=== PATIENT | female | born 1975 | race Caucasian/White ===

== ENCOUNTER 2017-09-30 05:08 | Day surgery (SDC) | payer OTHER ==
[2017-09-23 16:59] VITALS: BMI 21.2
[2017-09-30] MEDS ORDERED: ONDANSETRON 4 MG/2 ML VIAL IVPUSH PRN (14:11)
[2017-09-30] MEDS ORDERED: oxyCODONE HCL 5 MG TABLET PO PRN (14:11)
[2017-09-30] MEDS ORDERED: PROMETHAZINE HCL 25 MG/1 ML VIAL IVPUSH PRN (14:11)
[2017-09-30] MEDS ORDERED: MIDAZOLAM HCL 2 MG/2 ML SINGLE DOSE VIAL ONE (14:13)
[2017-09-30] MEDS ORDERED: PROPOFOL 20 ML ONE (14:14)
[2017-09-30] MEDS ORDERED: DEXAMETHASONE SOD PHOSPHATE 4 MG/1 ML VIAL ONE (14:14)
[2017-09-30] MEDS ORDERED: LIDOCAINE HCL/PF 2% SDV 5ML VIAL ONE (14:14)
[2017-09-30] MEDS ORDERED: LACTATED RINGERS SOLUTION 1,000 ML IV SCH (14:15)
--- NOTE | 2017-09-30 14:28 | HP ---
Past Medical History - Primary Care Physician PCP:: Kaushal Cody - Admission Chief Complaint: 41yo fe,wm with menometrorrhagia and uterine polyp on US admitted for hysteroscopy, polypectomy, D&C. 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: No: Alzheimer's, CVA, Dementia, Migraine, Multiple Sclerosis, Peripheral Neuropathy, Parkinson's, Seizure, Syncope, TIA, Vertigo, Other Cardiovascular: No: AFIB, Aneurysm, Aortic Insufficiency, Aortic Stenosis, CAD, CHF, Deep Vein Thrombosis, HTN, Hyperlipdemia, OR, Mitral Insufficiency, Mitral Stenosis, Murmur, Pulmonary Hypertension, Other Pulmonary: No: Asthma, Bronchitis, Cancer, COPD, O2 Dependent, Pneumonia, Previously Intubated, Pulmonary Embolus, Pulmonary Fibrosis, Sleep Apnea, Other Gastrointestinal: No: Ascites, Cancer, Constipation, Crohn's Disease, Diverticulitis, Diverticulosis, Esophageal Varices, Gastritis, GERD, GI Bleed, Hemorrhoids, Hiatal Hernia, Inflamatory Bowel Disease, Irritable Bowel Disease, Pancreatitis, Peptic Ulcer Disease, Ulcerative Colitis, Other Hepatobiliary: No: Cirrhosis, Cholelithiasis, Cholecystitis, Choledocholithiasis , Hepatitis A, Hepatitis B, Hepatitis C, Other Renal/: No: Renal Failure, Renal Inusuff, BPH, Cancer, Hematuria, Hemodialysis , Neurogenic Bladder, Renal Calculi, UTI, Other Reproductive: No: Ectopic , Endometriosis, Fibroids, PID, Polycystic Ovary Syndrome, Postmenopausal, Other ...Para: 2 Heme/Onc: No: Anemia, B12 Deficiency, Bleeding Disorder, Cancer, Current Chemotherapy, Current Radiation Therapy, Hemochromatosis, Hypercoaguable State, Myeloproliferative Synd, Sickle Cell Disease, Sickle Cell Trait, Thrombocytopenia, Other Infectious Disease: No: AIDS, C-Diff, Herpes Zoster, HIV, MRSA, STD's, Tuberculosis, VREF, Other Psych: No: Addictions, Anxiety, Bipolar, Depression, Panic, Psychosis, Schizophrenia, Other Musculoskeletal: No: Bursitis, Chronic low back pain, Hemiparesis, Hemiplegia, Osteoarthritis, Paraplegia, Other Rheumatology: No: Fibromyalgia, Gout, Lupus, Rheumatoid Arthritis, Sarcoidosis, Vasculitis, Other ENT: No: Allergic Rhinitis, Sinusitis, Other Endocrine: No: [place]'s Disease, [place]'s Disease, Diabetes Insipidus, Diabetes Mellitus, Hyperparathyroidism, Hyperthyroidism, Hypothyroidism, Osteopenia, SIADH, Other Dermatology: No: Basal Cell, Cellulitis, Eczema, Melanoma, Psoriasis, Squamous Cell, Other - Past Surgical History Past Surgical History: Yes: Tubal Ligation (Essure, breast bx) Hx Myomectomy: No Hx Transabdominal Cerclage: No - Smoking History Smoking history: Never smoked Have you smoked in the past 12 months: No Aproximately how many cigarettes per day: 0 - Alcohol/Substance Use Hx Alcohol Use: No - Social History Usual Living Arrangement: Yes: With Spouse ADL: Independent History of Recent Travel: No Home Medications - Allergies Allergies/Adverse Reactions: Allergies Allergy/AdvReac Type Severity Reaction Status Date / Time No Known Allergies Allergy Verified 09/30/17 12:22 - Home Medications Home Medications: Ambulatory Orders RX: No Home Medications 0 dose .ROUTE UTDICT 12/16/12 Review of Systems - Review of Systems Constitutional: reports: No Symptoms Eyes: reports: No Symptoms HENT: reports: No Symptoms Neck: reports: No Symptoms Cardiovascular: reports: No Symptoms Respiratory: reports: No Symptoms Gastrointestinal: reports: No Symptoms Genitourinary: reports: No Symptoms Breasts: reports: No Symptoms Reported Musculoskeletal: reports: No Symptoms Integumentary: reports: No Symptoms Neurological: reports: No Symptoms Endocrine: reports: No Symptoms Hematology/Lymphatic: reports: No Symptoms Psychiatric: reports: No Symptoms Pain Intensity: 0 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 Vital Signs: Vital Signs Temperature 98.0 F 09/30/17 12:52 Pulse Rate 72 09/30/17 12:52 Respiratory Rate 16 09/30/17 12:52 Blood Pressure 95/63 09/30/17 12:52 O2 Sat by Pulse Oximetry (%) Constitutional: Yes: Well Nourished, No Distress, Calm Eyes: Yes: WNL, Conjunctiva Clear HENT: Yes: WNL, Atraumatic, Normocephalic Neck: Yes: WNL, Supple, Trachea Midline Cardiovascular: Yes: WNL, Regular Rate and Rhythm Respiratory: Yes: WNL, Regular, CTA Bilaterally Gastrointestinal: Yes: WNL, Normal Bowel Sounds, Soft ...Rectal Exam: Yes: Deferred Renal/: Yes: WNL Pelvis: Yes: WNL External Genitalia: Yes: Normal Internal Exam Deferred: No Vaginal Exam: Yes: Normal Cervix: Yes: Normal Uterus: Yes: Enlarged, Firm, Lumpy Adnexa: Normal: Left, Right Musculoskeletal: Yes: WNL Extremities: Yes: WNL Edema: No Integumentary: Yes: WNL Neurological: Yes: WNL, Alert, Oriented ...Motor Strength: WNL Psychiatric: Yes: WNL, Alert, Oriented Imaging - Results Ultrasound: Report Reviewed Assessment/Plan 41yo P2 with menometrorrhagia and suspected uterine polyps, and uterine fibroids , admitted for hysteroscopy, polypectomy, D&C. We had discussed the risks, benefits, alternatives of surgery at length including but not limited to infection, bleeding, scarring, perforation, amenorrhea, infertility, hysterectomy, etc. We also discussed the specific risks of endometrial/uterine mass excision. The pt verbalized understanding and requested to proceed with surgery. I emphasized that all surgeries have risks and no guarantees can be provided
[2017-09-30] MEDS ORDERED: ONDANSETRON 4 MG/2 ML VIAL ONE (15:27)
--- NOTE | 2017-09-30 15:43 | OP ---
Operative Note - Note: Operative Date: 09/30/17 Pre-Operative Diagnosis: Menometrorrhagia, endometrial polyps, uterine fibroids Operation: Hysteroscopy, myomectomy, D&C Findings: 1. EUA= bulky uterus with several myomas 2. Hysteroscopy= anterior subserosal myoma 1 x 2cm, fundal subserosal myoma 1 x 1cm Post-Operative Diagnosis: Other (Menometrorrhagia, subserosal myomas) Surgeon: Kaushal Cody Anesthesiologist/CHAIN LINK FENCE INSTALLER: Brittni López MD Anesthesia: General Specimens Removed: Uterine myomas, endometrial curettings Estimated Blood Loss (mls): 50 Blood Volume Replaced (mls): 0 Fluid Volume Replaced (mls): 1,000 Operative Report Dictated: Yes
--- NOTE | 2017-09-30 16:09 | DS ---
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 Vital Signs: Vital Signs Temperature 98.0 F 09/30/17 12:52 Pulse Rate 72 09/30/17 12:52 Respiratory Rate 16 09/30/17 12:52 Blood Pressure 95/63 09/30/17 12:52 O2 Sat by Pulse Oximetry (%) Constitutional: Yes: Well Nourished, No Distress, Calm Eyes: Yes: WNL, Conjunctiva Clear HENT: Yes: WNL, Atraumatic, Normocephalic Neck: Yes: WNL, Supple, Trachea Midline Cardiovascular: Yes: WNL, Regular Rate and Rhythm Respiratory: Yes: WNL, Regular, CTA Bilaterally Gastrointestinal: Yes: WNL, Normal Bowel Sounds, Soft ...Rectal Exam: Yes: Deferred Renal/: Yes: WNL External Genitalia: Yes: Normal Internal Exam Deferred: Yes Vaginal Exam: Yes: Bleeding (light) Musculoskeletal: Yes: WNL Extremities: Yes: WNL Edema: No Integumentary: Yes: WNL Neurological: Yes: WNL, Alert, Oriented ...Motor Strength: WNL Psychiatric: Yes: WNL, Alert, Oriented Discharge Summary Reason For Visit: METRORRHAGIA/ENDOMETRIAL POLYP uterine fibroids Procedures: Principal: Hysteroscopic myomectomy Hospital Course: Normal recovery Condition: Good - Instructions Diet, Activity, Other Instructions: Dr. Kaushal Cody Medical Aides Teacher discharge instructions Physical activity Resume your normal everyday activity as tolerated no heavy lifting or exercise until seen by your surgeon. You may walk unlimited tim of and climb stairs. You may resume driving the car when you feel safe and comfortable behind the wheel. No sexual activity as instructed by Dr. Cody. Wound care If you have a bandage, leave it on, and keep dry for 48-72 hours. After that time discard the outer bandage. If they are tapes on the skin under the out of bandage leave them in place. They will peel off in the next 7 to 10 days. Do Not Peel them off. You may shower the day after surgery. If there are tapes present on the skin, you may shower over them. Diet There are no dietary restrictions. Eat healthy, high-fiber foods. Drink 6 to 8 glasses of liquid each day. This will assist in keeping your bowels are regular. Pain management You may take Tylenol or acetaminophen or Ibuprofen (for example, Motrin, Advil etc.) from my pain prescription medication is ordered should be taken as prescribed for moderate to severe pain. Call Dr. Cody for any of the following: Severe pain not relieved by medication Fever of 101 or higher Excessive bleeding or drainage on dressing Inability to urinate Call the office at [phone] for an appointment in 2-3 weeks. Disposition: HOME - Home Medications Comprehensive Discharge Medication List: Ambulatory Orders No Home Medications 0 dose .ROUTE UTDICT 12/16/12
[2017-09-30 16:41] VITALS: PULSE 63
[2017-09-30 18:45] VITALS: BP 109/60
[2017-09-30 20:23] VITALS: TEMP 98.2
--- NOTE | 2017-10-01 07:54 | OP ---
DATE OF OPERATION: 09/30/2017 PREOPERATIVE DIAGNOSES: Menometrorrhagia, endometrial polyps, uterine fibroids. POSTOPERATIVE DIAGNOSES: Menometrorrhagia, uterine fibroids including submucosal fibroids. PROCEDURE: Hysteroscopy, myomectomy, dilatation and curettage. SURGEON: Kaushal Cody MD ACCOUNTS OFFICER: None. ANESTHESIOLOGIST: Brittni López MD ANESTHESIA: General. COMPLICATIONS: None. ESTIMATED BLOOD LOSS: 50 mL INTRAVENOUS FLUIDS: 1000 mL PATHOLOGY: Uterine myomas and endometrial curettings. FINDINGS: Examination under anesthesia revealed a bulky, enlarged uterus with several myomas palpated. Hysteroscopy revealed an enlarged uterine cavity with anterior submucosal myoma measuring 1 x 2 cm as well as a fundal submucosal myoma measuring 1 x 1 cm. There were no other endometrial or uterine cavity lesions. DESCRIPTION OF PROCEDURE: The patient was met preoperatively. Risks and benefits of surgery were discussed. All questions were answered. The patient requested to proceed with surgery. The consent was reviewed and signed. The patient was then brought to the OR with the IV running. She was placed on the surgical table in the supine position. General endotracheal anesthesia was achieved without difficulty. The patient was then placed in a dorsal lithotomy position using adjustable Jose stirrups. She was examined under anesthesia with the findings as described above. A timeout procedure was conducted as per standard protocol. The patient was then prepped and draped in the usual sterile fashion. A weighted speculum was introduced inside the vagina with good visualization of the cervix. The cervix was grasped with a single-tooth tenaculum. The cervical os was dilated to accommodate a size 21 Garcia dilator. A hysteroscope was gently introduced inside the uterine cavity. The uterine cavity appeared to be enlarged. There was an anterior submucosal myoma measuring approximately 1 x 2 cm in size. There was a second submucosal myoma in the fundal region measuring approximately 1 x 1 cm in size. There were no other uterine cavity lesions. The TruClear polyp resection device was then used hysteroscopically under direct visualization to attempt and excise both of the fibroids. However, once it was discovered that the 2 masses were, in fact, fibroids and not polyps, the attempt to excise them using a TruClear device was abandoned because the device did not work and could not resect the fibroids. At that point, the patient's cervix was dilated to accommodate a size 29 Garcia dilator. A polyp-grasping forcep was then used to grasp and remove the fundal myoma. Then again, a polyp-grasping forcep was used to grasp and remove the anterior uterine submucosal myoma. Both fibroids were sent to Pathology. Once this was completed, a sharp uterine curettage was performed, and the endometrial curettings were also sent to Pathology. A hysteroscope was then once again introduced inside the uterine cavity. The uterine cavity appeared to be normal. There was good hemostasis observed. The hysteroscope was removed from the patient. All of the instruments were removed. A small area of bleeding was noted from the cervix at the site of the tenaculum. A suture ligature was used to achieve good hemostasis. Sponge, lap, and needle counts were correct. Once again, good hemostasis was confirmed. The patient was returned to supine position. The patient was then transferred to recovery room awake and in stable condition. Marya [id number]
--- NOTE | 2017-10-05 14:29 | PATH ---
Surgical Pathology Report Patient Name: [facility]. Rec. #: [id number] /Age/Gender: 1975 (Age: 41) / F Account: [id number] Location: [facility] SURGICAL Taken: 09/30/2017 Received: 10/02/2017 Reported: 10/05/2017 Physicians: Kaushal Cody M.D. Specimen(s) Received A: ENDOMETRIAL CURETTINGS B: UTERINE FIBROIDS Clinical History Menorrhagia, fibroid uterus Final Diagnosis A. ENDOMETRIAL CURETTINGS, DILATION AND CURETTAGE: FRAGMENTS OF SECRETORY ENDOMETRIUM AND SUPERFICIAL MYOMETRIUM. B. FIBROIDS, POLYPECTOMY: LEIOMYOMA(TA). Electronically Signed Jeannette Mccurdy M.D. Gross Description A. Received in formalin labeled "endometrial curettings," is a 4.5 x 4.0 x 0.4 cm aggregate of miranda-brown soft tissue fragments admixed with blood clot. The formalin is filtered and the specimen is entirely submitted in 3 cassettes. B. Received in formalin labeled "fibroids," is a 1 g aggregate of 2 miranda, irregular, firm to rubbery nodules measuring 0.7 and 1.5 cm in greatest dimension, consistent with fibroids. Sectioning reveals homogeneous miranda, firm parenchyma with whorled architecture. No areas of hemorrhage or necrosis are identified. The specimens are sectioned and entirely submitted in one cassette. 10/02/2017 saudi10/02/2017
== END 2017-09-30 18:46 | disposition home or self-care (01) ==
LOC: JASU-SURG 05:08
PROVIDERS: ATTEND Obstetrics & Gynecology
PROC: 0UJD8ZZ Inspection of Uterus and Cervix, Via Natural or Artificial Opening Endoscopic (ICD-10-PCS; 2017-09-30)
PROC: 0UB98ZZ Excision of Uterus, Via Natural or Artificial Opening Endoscopic (ICD-10-PCS; principal; 2017-09-30 14:30)
PROC: 0UDB7ZX Extraction of Endometrium, Via Natural or Artificial Opening, Diagnostic (ICD-10-PCS; 2017-09-30 14:30)
DX: N92.1 Excessive and frequent menstruation with irregular cycle (principal); D25.0 Submucous leiomyoma of uterus
CPT/HCPCS: 84703; 88305-TC

== ENCOUNTER 2020-01-23 16:09 | Inpatient (IN) | payer BC ==
[2020-02-02 17:40] VITALS: BMI 21.6
[2020-02-06] MEDS ORDERED: ROPIVACAINE HCL 0.5% 30ML VIAL ONE (08:10)
[2020-02-06] MEDS ORDERED: MIDAZOLAM HCL 2 MG/2 ML SINGLE DOSE VIAL ONE ×2 (08:11)
[2020-02-06] MEDS ORDERED: PROPOFOL 20 ML ONE (08:14)
[2020-02-06] MEDS ORDERED: ROCURONIUM BROMIDE 50 MG/5 ML SYRINGE ONE (08:14)
[2020-02-06] MEDS ORDERED: CEFAZOLIN 2 GM in DEXTROSE 5%-WATER 100 ML IVPB ONE (08:23)
[2020-02-06] MEDS ORDERED: LIDOCAINE HCL/PF 2% SDV 5ML VIAL ONE (08:41)
[2020-02-06] MEDS ORDERED: DEXAMETHASONE SOD PHOSPHATE 4 MG/1 ML VIAL ONE (08:52)
[2020-02-06] MEDS ORDERED: SODIUM CHLORIDE 0.9% P/F 10 ML VIAL IJ ONE (08:52)
[2020-02-06] MEDS ORDERED: ONDANSETRON 4 MG/2 ML VIAL ONE (08:52)
[2020-02-06] MEDS ORDERED: ceFAZolin SODIUM 1 GM VIAL IVPB ONE (08:54)
[2020-02-06] MEDS ORDERED: ENOXAPARIN NA (PORCINE) 40 MG/0.4 ML DISP.SYRIN SQ SCH (10:00)
[2020-02-06] MEDS ORDERED: GLYCOPYRROLATE 0.2 MG/1 ML VIAL ONE (10:05)
[2020-02-06] MEDS ORDERED: NEOSTIGMINE METHYLSULFATE 0.5 MG/1 ML - 10 ML MDV ONE (10:06)
[2020-02-06] MEDS ORDERED: BENZOIN/ALOE VERA/STORAX/TOLU 58 ML BOTTLE ONE (10:22)
[2020-02-06] MEDS ORDERED: ONDANSETRON 4 MG/2 ML VIAL IVPUSH PRN ×2 (10:36)
[2020-02-06] MEDS ORDERED: PROMETHAZINE HCL 25 MG/1 ML VIAL IVPUSH PRN (10:36)
[2020-02-06] MEDS ORDERED: DEXAMETHASONE SOD PHOSPHATE 4 MG/1 ML VIAL IVPUSH PRN (10:36)
[2020-02-06] MEDS ORDERED: PROMETHAZINE HCL 25 MG/1 ML VIAL IVPB PRN (10:36)
[2020-02-06] MEDS ORDERED: LACTATED RINGERS SOLUTION 1,000 ML IV SCH (10:45)
--- NOTE | 2020-02-06 10:45 | OP ---
Operative Note - Note: Operative Date: 02/06/20 Pre-Operative Diagnosis: Pelvic pain. Fibroid uterus. Left adnexal mass Operation: DANUTA, LSO, right salpingectomy. Findings: Bulky enlarged uterus with multiple myomas, enlarged left ovary with cystic mass. Normal right ovary, normal Fallopian tubes bilaterally. Post-Operative Diagnosis: Same as Pre-op Surgeon: Kaushal Cody Oscillograph Technician: Debi Mckeon Anesthesiologist/INDEPENDENT JEWELER: Edinson Levine Anesthesia: General Specimens Removed: Uterus with cervix, bilateral Fallopian tubes, left ovary. Estimated Blood Loss (mls): 100 Drains & Tubes with Location: Acosta Cath Drains, Volume Out (mls): 75 Blood Volume Replaced (mls): 0 Fluid Volume Replaced (mls): 1,200 Operative Report Dictated: Yes
[2020-02-06] MEDS ORDERED: IBUPROFEN 600 MG TABLET (FP) PO PRN (10:50)
[2020-02-06] MEDS ORDERED: DOCUSATE SODIUM 100 MG CAPSULE (FP) PO PRN (10:51)
[2020-02-06] MEDS ORDERED: ACETAMINOPHEN 1000 MG/100 ML VIAL (NON FORMULARY) IVPB PRN (10:51)
[2020-02-06] MEDS: HYDROmorphone *PCA* 10MG/50ML DISP.SYRIN PCA SCH ×2 (11:00→19:17)
[2020-02-06] MEDS ORDERED: ACETAMINOPHEN 1000 MG/100 ML VIAL (NON FORMULARY) IVPB ONE (11:37)
[2020-02-06] MEDS: CEFAZOLIN 2 GM/D5W 2 GM/50 ML ML IVPB SCH (17:35)
[2020-02-06] MEDS ORDERED: CEFAZOLIN 2 GM in DEXTROSE 5%-WATER - 100 ML IVPB SCH (18:00)
[2020-02-07] MEDS: CEFAZOLIN 2 GM/D5W 2 GM/50 ML ML IVPB SCH ×2 (01:50→09:29)
--- NOTE | 2020-02-07 07:59 | OP ---
DATE OF OPERATION: 02/06/2020 PREOPERATIVE DIAGNOSES: Pelvic pain, fibroid uterus, left adnexal mass. POSTOPERATIVE DIAGNOSES: Pelvic pain, fibroid uterus, left adnexal mass. PROCEDURE: Total abdominal hysterectomy, left oophorectomy, bilateral salpingectomy. SURGEON: Vandana Cody MD MOLD CLEANER: Debi Mckeon MD ANESTHESIOLOGIST: Edinson Levine MD ANESTHESIA: General. COMPLICATIONS: None. ESTIMATED BLOOD LOSS: 100 mL. URINE OUTPUT: Clear urine, 75 mL, at end of the procedure. INTRAVENOUS FLUIDS: Crystalloids, 1200 mL. PATHOLOGY: Uterus and cervix, left ovary with ovarian mass/cyst, bilateral fallopian tubes and left paratubal cyst. FINDINGS: Examination under anesthesia revealed a bulky enlarged uterus consistent with approximately 12 weeks of gestation. During laparotomy a bulky fibroid uterus was noted. Multiple fibroids were observed. The left ovary appeared enlarged and contained a cystic mass. Both fallopian tubes were normal. The right ovary was normal. PROCEDURE: The patient was met preoperatively. Risks, benefits and alternatives of surgery were discussed in detail. All questions were answered. The consent form was reviewed. The patient verbalized her understanding. The consent form was signed and the patient requested to proceed with the surgery. Surgical options were also discussed with the patient and she expressed her desire for a total abdominal hysterectomy with removing of uterus and cervix with removing of both fallopian tubes and removing of the left ovary. The patient was then brought to the OR with IV running. She was placed on the surgical table in supine position. The general anesthesia was achieved without difficulty. A Acosta catheter was then inserted using sterile technique and left to drain to gravity. The patient was prepped and draped in the usual sterile fashion. The timeout was conducted as per standard protocol. The surgeons then proceeded with the operation. A Pfannenstiel skin incision was made with a knife approximately 2 cm above the pubic symphysis. The incision was taken down to the level of fascia. The fascia was incised in the midline. The incision was extended bilaterally using Mcelroy scissors. The fascia was then dissected away from the rectus muscles superiorly and inferiorly. The rectus muscles were in the midline. The peritoneum was identified, picked up with 2 Essence clamps and entered sharply. The peritoneal incision was extended superiorly and inferiorly. The uterus was palpated and brought out of the incision. The left round ligament was identified. The left round ligament was clamped with a Essence clamp, suture ligated and transected with good hemostasis. The right round ligament was also identified, picked up with 2 Essence clamps. It was suture ligated and transected with good hemostasis. The anterior leaf of the broad ligament was then incised and the incision was carried down medially towards the bladder reflection. The bladder reflection was then created and the bladder was dissected away from the lower uterine segment and cervicovaginal fascia. The bladder was reflected downwards. The posterior leaf of the broad ligament was then incised bilaterally. The left infundibulopelvic ligament was clamped, transected and suture ligated with good hemostasis. The right uteroovarian ligament was clamped, transected and suture ligated with good hemostasis. The posterior broad ligament was then incised medially towards the bilateral uterosacral ligament. At that point both uterine arteries and veins were skeletonized bilaterally. The uterine arteries and veins were then clamped using Hebert clamps, transected and suture ligated with good hemostasis. Several bites were then taken along the cervix to transect the cardinal ligament. The cardinal ligaments were suture ligated with good hemostasis. At that point the vaginal tissue was incised and the cervix and uterus were amputated. The vaginal cuff was then suture ligated with good hemostasis using 0 Vicryl sutures. The vaginal cuff was also attached to the remaining uterosacral ligament. Good hemostasis was confirmed. At that point the operative site was reperitonealized using a 2-0 Vicryl suture. Good hemostasis was noted. All of the pedicles and operative site were surveyed and good hemostasis was confirmed. The operative site was irrigated using copious amounts of normal saline. Once the saline was aspirated good hemostasis was confirmed. All of the instruments were removed from the patient. Sponge, lap, needle and instrument counts were correct. The specimen was sent to Pathology. The parietal peritoneum was closed using a 2-0 Vicryl suture. The rectus muscles were approximated in the midline using several interrupted 2-0 Vicryl sutures. The fascia was closed using a 0 Vicryl suture in 2 segments using a running stitch. The skin was closed using a 3-0 Vicryl suture with a subcutaneous stitch. Good hemostasis was noted. Once again sponge, lap, instrument counts were correct. The patient was then transferred to recovery room in stable condition and awake. VANDANA CODY M.D. RANDY/[id number]
[2020-02-07] MEDS ORDERED: PCA PUMP KEY 1 EACH EACH ONE (08:48)
[2020-02-07 09:09] LABS: BASO % 0.1 % (0-2.0); EOS % 0.1 % (0-4.5); HEMATOCRIT 36.4 % (32.4-45.2); HEMOGLOBIN 12.1 GM/dL (10.7-15.3); MCH 30.5 pg (25.7-33.7); MCHC 33.4 g/dl (32.0-36.0); MEAN CELL VOLUME 91.4 fl (80-96); MEAN PLT VOLUME 8.3 fl (7.5-11.1); NEUT % 71.8 % (42.8-82.8); PLATELET COUNT 182 K/MM3 (134-434); RBC 3.98 M/mm3 (3.60-5.2); RDW 13.9 % (11.6-15.6); WHITE BLOOD COUNT 9.2 K/mm3 (4.0-10.0)
[2020-02-07] MEDS: ENOXAPARIN NA (PORCINE) 40 MG/0.4 ML DISP.SYRIN SQ SCH (09:29)
[2020-02-07] MEDS: oxyCODONE HCL 5 MG TABLET PO PRN ×4 (09:30→23:42)
[2020-02-07] MEDS: ACETAMINOPHEN 325 MG TABLET (FP) PO PRN ×4 (09:30→23:42)
[2020-02-07 09:34] LABS: ALBUMIN 3.1 g/dl (3.4-5.0); BILIRUBIN,TOTAL 0.5 mg/dL (0.2-1); BLOOD UREA NITROGEN 6.8 mg/dL (7-18); CALCIUM 8.1 mg/dL (8.5-10.1); CREATININE 0.5 mg/dL (0.55-1.3); POTASSIUM 3.8 mmol/L (3.5-5.1); TOT PROT 5.7 g/dl (6.4-8.2)
[2020-02-07] MEDS: HYDROmorphone *PCA* 10MG/50ML DISP.SYRIN PCA SCH (12:22)
--- NOTE | 2020-02-07 12:42 | PN ---
Progress Note (short form) - Note Progress Note: Anesthesia postop note POD#1 S/P abdominal hysterectomy under GA, TAP block and DOG BEAUTICIAN. VSS ambulating. Tolerating po, C/o nausea last night. Stopped DOG BEAUTICIAN. On Po meds. C/O pain when ambulating. /.,is sitting comfortably though. continue po meds as per primary team. No apparent post anesthesia complications.
--- NOTE | 2020-02-07 20:54 | PN ---
Progress Note (SOAP) - Subjective Chief Complaint: No complaints, pain is controlled. No flatus yet, no nausea or vomiting. Ambulating and Urinating well. History of Present Illness: POD# 1, s/p DANUTA, right salpingoophorectomy, left salpingectomy - Current Medications Current Medications: Active Medications Acetaminophen (Tylenol -) 650 mg PO Q6H PRN PRN Reason: FEVER Last Admin: 02/07/20 18:42 Dose: 650 mg Documented by: Acetaminophen (Ofirmev Injection -) 1,000 mg IVPB Q6H PRN PRN Reason: PAIN Stop: 02/07/20 10:51 Dexamethasone Sodium Phosphate (Decadron Injection -) 4 mg IVPUSH ONCE PRN PRN Reason: NAUSEA AND/OR VOMITING Diphenhydramine HCl (Benadryl Injection -) 12.5 mg IVPUSH ONCE PRN PRN Reason: FOR ITCHING Docusate Sodium (Colace -) 100 mg PO BID PRN PRN Reason: CONSTIPATION Enoxaparin Sodium (Lovenox -) 40 mg SQ DAILY [facility] Last Admin: 02/07/20 09:29 Dose: 40 mg Documented by: Fentanyl (Sublimaze Injection -) 50 mcg IVPUSH [id number] PRN PRN Reason: PAIN-PACU ORDER X 4 DOSES ONLY Last Admin: 02/06/20 10:45 Dose: 50 mcg Documented by: Lactated Ringer's (Lactated Ringers Solution) 1,000 mls @ 125 mls/hr IV ASDIR [facility] Last Admin: 02/06/20 17:38 Dose: 125 mls/hr Documented by: Ibuprofen (Motrin -) 600 mg PO Q6H PRN PRN Reason: PAIN Ondansetron HCl (Zofran Injection) 4 mg IVPUSH Q6H PRN PRN Reason: NAUSEA AND/OR VOMITING Ondansetron HCl (Zofran Injection) 4 mg IVPUSH Q4H PRN PRN Reason: NAUSEA AND/OR VOMITING Last Admin: 02/07/20 03:26 Dose: 4 mg Documented by: Oxycodone HCl (Roxicodone -) 5 mg PO Q4H PRN PRN Reason: PAIN LEVEL 4 - 6 Last Admin: 02/07/20 18:42 Dose: 5 mg Documented by: Promethazine HCl (Phenergan Injection -) 12.5 mg IVPB Q6H PRN PRN Reason: NAUSEA AND/OR VOMITING - Objective Vital Signs: Vital Signs Temperature 98.6 F 02/07/20 14:00 Pulse Rate 62 02/07/20 14:00 Respiratory Rate 20 02/07/20 14:00 Blood Pressure 110/62 02/07/20 14:00 O2 Sat by Pulse Oximetry (%) 100 02/06/20 21:00 Constitutional: Yes: Well Nourished, No Distress, Calm Eyes: Yes: WNL, Conjunctiva Clear, EOM Intact HENT: Yes: WNL, Atraumatic, Normocephalic Neck: Yes: WNL, Supple, Trachea Midline Cardiovascular: Yes: WNL, Regular Rate and Rhythm Respiratory: Yes: WNL, Regular, CTA Bilaterally Gastrointestinal: Yes: WNL, Normal Bowel Sounds, Soft ...Rectal Exam: Yes: Deferred Genitourinary: Yes: WNL Musculoskeletal: Yes: WNL Extremities: Yes: WNL Peripheral Pulses WNL: Yes Edema: No Integumentary: Yes: WNL Wound/Incision: Yes: Clean/Dry, Well Approximated, Sutures Intact, Steri Strips, Open to air Neurological: Yes: WNL, Alert, Oriented ...Motor Strength: Yes: WNL Psychiatric: Yes: WNL, Alert, Oriented Labs Lab Results: CBCD WBC 9.2 K/mm3 (4.0-10.0) 02/07/20 08:25 RBC 3.98 M/mm3 (3.60-5.2) 02/07/20 08:25 Hgb 12.1 GM/dL (10.7-15.3) 02/07/20 08:25 Hct 36.4 % (32.4-45.2) 02/07/20 08:25 MCV 91.4 fl (80-96) 02/07/20 08:25 MCHC 33.4 g/dl (32.0-36.0) 02/07/20 08:25 RDW 13.9 % (11.6-15.6) 02/07/20 08:25 Plt Count 182 K/MM3 (134-434) 02/07/20 08:25 MPV 8.3 fl (7.5-11.1) 02/07/20 08:25 CMP Sodium 140 mmol/L (136-145) 02/07/20 08:25 Potassium 3.8 mmol/L (3.5-5.1) 02/07/20 08:25 Chloride 106 mmol/L (98-107) 02/07/20 08:25 Carbon Dioxide 28 mmol/L (21-32) 02/07/20 08:25 Anion Gap 6 MMOL/L (8-16) L 02/07/20 08:25 BUN 6.8 mg/dL (7-18) L 02/07/20 08:25 Creatinine 0.5 mg/dL (0.55-1.3) L 02/07/20 08:25 Random Glucose 99 mg/dL (74-106) 02/07/20 08:25 Calcium 8.1 mg/dL (8.5-10.1) L 02/07/20 08:25 Total Bilirubin 0.5 mg/dL (0.2-1) 02/07/20 08:25 AST 12 U/L (15-37) L 02/07/20 08:25 ALT 16 U/L (13-61) 02/07/20 08:25 Alkaline Phosphatase 78 U/L (45-117) 02/07/20 08:25 Total Protein 5.7 g/dl (6.4-8.2) L 02/07/20 08:25 Albumin 3.1 g/dl (3.4-5.0) L 02/07/20 08:25 Assessment/Plan POD #1 doing well, stable and afebrile. Ambulation encouraged. If the patient has flatus and continues to do well, plan to d/c home tomorrow.
--- NOTE | 2020-02-07 21:02 | DS ---
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 Vital Signs: Vital Signs Temperature 98.6 F 02/07/20 14:00 Pulse Rate 62 02/07/20 14:00 Respiratory Rate 20 02/07/20 14:00 Blood Pressure 110/62 02/07/20 14:00 O2 Sat by Pulse Oximetry (%) 100 02/06/20 21:00 Constitutional: Yes: Well Nourished, No Distress, Calm Eyes: Yes: WNL, Conjunctiva Clear, EOM Intact HENT: Yes: WNL, Atraumatic, Normocephalic Neck: Yes: WNL, Supple, Trachea Midline Cardiovascular: Yes: WNL, Regular Rate and Rhythm Respiratory: Yes: WNL, Regular, CTA Bilaterally Gastrointestinal: Yes: WNL, Normal Bowel Sounds, Soft ...Rectal Exam: Yes: Deferred Renal/: Yes: WNL Internal Exam Deferred: Yes Breast(s): Yes: WNL Musculoskeletal: Yes: WNL Extremities: Yes: WNL Integumentary: Yes: WNL Wound/Incision: Yes: Clean/Dry, Well Approximated, Sutures Intact, Steri Strips, Open to air Neurological: Yes: WNL, Alert, Oriented ...Motor Strength: WNL Psychiatric: Yes: WNL, Alert, Oriented Labs: CBC, BMP 02/07/20 08:25 02/07/20 08:25 Discharge Summary Problems reviewed: Yes Reason For Visit: FIBROID UTERUS/ABD OR PELVIC SWELLING & PAIN Postop Procedures: Principal: Total abdominal hysterectomy, right salpingoophorectomy, left salpingectomy Hospital Course: Normal postop Plan of Treatment: Ambulation, pain management Goals: return to full range of normal activities Condition: Good - Instructions Diet, Activity, Other Instructions: Physical activity Resume your normal everyday activity as tolerated no heavy lifting or exercise until seen by your surgeon. You may walk unlimited tim of and climb stairs. You may resume driving the car when you feel safe and comfortable behind the wheel. No sexual activity as instructed. Wound care If you have a bandage, leave it on, and keep dry for 48-72 hours. After that time discard the outer bandage. If they are tapes on the skin under the out of bandage leave them in place. They will peel off in the next 7 to 10 days. Do Not Peel them off. You may shower the day after surgery. If there are tapes present on the skin, you may shower over them. Diet There are no dietary restrictions. Eat healthy, high-fiber foods. Drink 6 to 8 glasses of liquid each day. This will assist in keeping your bowels are regular. Pain management You may take Tylenol or acetaminophen or Ibuprofen (for example, Motrin, Advil etc.) from my pain prescription medication is ordered should be taken as prescr ibed for moderate to severe pain. Call MD for any of the following: Severe pain not relieved by medication Fever of 101 or higher Excessive bleeding or drainage on dressing Inability to urinate Referrals: Kaushal Cody MD [Staff Physician] - 1 Week Disposition: HOME - Home Medications Comprehensive Discharge Medication List: Ambulatory Orders No Home Medications 0 dose .ROUTE UTDICT 12/16/12 Ibuprofen 600 mg PO Q6H PRN #30 tablet 02/07/20 Oxycodone HCl [Roxicodone] 5 mg PO Q4H PRN #20 tablet MDD 8 02/07/20 Prescription Drug Monitoring Program (I-STOP) results: I-STOP not reviewed
[2020-02-08] MEDS ORDERED: BISACODYL 10 MG SUPP.RECT PR PRN (09:08)
[2020-02-08 09:12] VITALS: BP 105/60; PULSE 86; TEMP 97.8
[2020-02-08] MEDS: ENOXAPARIN NA (PORCINE) 40 MG/0.4 ML DISP.SYRIN SQ SCH (09:19)
[2020-02-08] MEDS: oxyCODONE HCL 5 MG TABLET PO PRN (11:32)
[2020-02-08] MEDS: ACETAMINOPHEN 325 MG TABLET (FP) PO PRN (11:35)
--- NOTE | 2020-02-11 12:10 | PATH ---
Surgical Pathology Report Patient Name: SRI RICHARDSON [facility]. Rec. #: [id number] /Age/Gender: 1975 (Age: 44) / F Account: [id number] Location: 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 Specimen(s) Received A: LEFT PARATUBAL CYST B: UTERUS, CERVIX, WITH OR W/O TUBES AND OVARIES, (WITH FIBROIDS Clinical History Fibroid uterus/abdominal or pelvic swelling and pain Final Diagnosis A. LEFT PARATUBAL CYST, CYSTECTOMY: CONSISTENT WITH PARATUBAL CYST. B. UTERUS, CERVIX, BILATERAL TUBES AND LEFT OVARY, HYSTERECTOMY: LEIOMYOMATA, WITH FOCAL HEMORRHAGE, HYALINIZATION AND CALCIFICATIONS SEEN IN TWO LEIOMYOMAS. SECRETORY TYPE ENDOMETRIUM . CERVIX WITH ACUTE AND CHRONIC CERVICITIS, SQUAMOUS METAPLASIA. RIGHT FALLOPIAN TUBE WITH PARATUBAL CYSTS. LEFT FALLOPIAN TUBE WITH ENDOSALPINGIOSIS. LEFT OVARY WITH HEMORRHAGIC CORPUS LUTEUM, AND BENIGN SIMPLE CYST WITH NO DEFINITE EPITHELIAL LINING. Electronically Signed Batsheva Huitron M.D. Gross Description A. Received in formalin labeled "left paratubal cyst," is a 2.0 x 1.5 x 1.3 cm miranda, intact, translucent cystic structure. The outer surface is smooth. The lumen contains clear serous fluid. The inner lining is smooth. No excrescences are identified. Hooker Operator sections are submitted in one cassette. B. Received formalin labeled "uterus, cervix, bilateral tubes and left ovary," is a 440 g uterus with an attached cervix, bilateral attached fallopian tubes and an attached left ovary. The specimen measures 12 cm from superior to inferior, 9 cm from anterior to posterior and 8.5 cm from left to right. The serosa is miranda-brar with a focal bulging subserosal nodule. The attached cervix measures 3.8 cm in length and 3.5 cm in diameter. The ectocervix is miranda, smooth and glistening. The endocervix is unremarkable. The endometrial cavity measures 5 cm in length and 2 cm from cornu to cornu. The endometrium is red and averages 0.2 cm in thickness. The myometrium displays abundant intramural nodules, measuring up to 5.3 cm in greatest dimension. The cut surface of the subserosal nodule is necrotic. The cut surface of one of the smaller intramural nodules displays central hemorrhage. The remaining intramural nodules, as well as the largest intramural nodule, displays miranda, rubbery parenchyma with whorled architecture. No areas of hemorrhage or necrosis are identified. The remaining myometrium is miranda-pink and measures up to 6 cm in thickness. The right fimbriated fallopian tube measures 4.5 cm in length. The outer surface is brar purple with a 0.9 cm in greatest dimension paratubal cyst attached to the fimbria. The cut surface of the fallopian tube reveals an unremarkable lumen. The left fimbriated fallopian tube measures 4 cm in length. The outer surface is miranda-brar with a 0.8 cm in greatest dimension paratubal cyst attached to the fimbria. The cut surface of the fallopian tube reveals an unremarkable lumen. The left ovary measures 4.5 x 3.8 x 3.2 cm. The outer surface and miranda and smooth. Sectioning reveals a 4.0 cm in greatest dimension cystic structure containing clear serous fluid. The inner lining of the cyst is smooth. No excrescences are identified. The minimal remaining normal ovarian parenchyma displays two corpora lutea. Hooker Operator sections are submitted in 18 cassettes as follows: 1-anterior cervix; 2-posterior cervix; 6-2-[id number] endomyometrium; 4-3-[id number] endomyometrium; 7-necrotic subserosal nodule; 8-intramural nodule with focus of hemorrhage; 9-additional intramural nodules; 26-89-[id number] intramural nodule; 12-right fallopian tube fimbria with paratubal cyst; 13-cross sections of right fallopian tube; 14-left fallopian tube fimbria; 15-cross sections of left fallopian tube; 16-left ovarian parenchyma; 17-18-left ovarian cyst. 02/07/2020 [facility]02/07/2020
== END 2020-02-08 11:35 | disposition home or self-care (01) | DRG 743 ==
LOC: J2C 02-06 05:15 → J3W 02-06 12:59
PROVIDERS: ADMIT Obstetrics & Gynecology; ATTEND Obstetrics & Gynecology
PROC: 0UT10ZZ Resection of Left Ovary, Open Approach (ICD-10-PCS; 2020-02-06)
PROC: 0UT70ZZ Resection of Bilateral Fallopian Tubes, Open Approach (ICD-10-PCS; 2020-02-06)
PROC: 0UT90ZZ Resection of Uterus, Open Approach (ICD-10-PCS; principal; 2020-02-06 08:00)
DX: D25.9 Leiomyoma of uterus, unspecified (principal); N85.9 Noninflammatory disorder of uterus, unspecified
CPT/HCPCS: 36415; 80053; 85025; 88304-TC; 88307-TC; 94010; 94760; J0131